=== PATIENT | female | born 2005 | race Two or more races ===

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

== ENCOUNTER 2025-03-04 15:35 | Emergency (ER) | payer OTHER ==
[~2025-03-04] VITALS: Ht 157.5 cm; Wt 66.4 kg
--- NOTE | 2025-03-04 15:46 | ED.PDOC ---
Back pain HPI HPI Comments A 19 YEAR-OLD FEMALE PRESENTS TO THE ED WITH A CHIEF COMPLAINT OF LOWER BACK PAIN OF X3 WEEKS AGO S/P LIFTING HEAVY BOXES ABOVE HER HEAD. PATIENT STATES PAIN IS A 10/10, WITH NO ASSOCIATED RELIEVING FACTORS. PATIENT HAS NO FURTHER COMPLAINTS AT THIS TIME AND OTHERWISE DENIES FEVER, CHILLS, SHORTNESS OF BREATH, CHEST PAIN, ABDOMINAL PAIN, NAUSEA, VOMITING, HEADACHE, OR OTHER COMPLAINTS.PATIENT IS ALERT, ORIENTED X 4, AND HAS STEADY GAIT. Chief Complaint: BACK PAIN Time Seen by MD: 15:49 Reviewed Notes: Nurses Notes, Medications, Allergies Allergies: Coded Allergies: NO KNOWN ALLERGIES (Unverified , 03/04/25) Home Meds Active Scripts Methocarbamol (Methocarbamol) 750 Mg Tab, 750 MG PO BID, #20 TAB Prov:JOHNATHAN CHAPIN 03/04/25 Ibuprofen (Ibuprofen) 800 Mg Tab, 1 TAB PO TID, #30 TAB Prov:JOHNATHAN CHAPIN 03/04/25 Information Source: Patient Mode of Arrival: Ambulatory Timing: Days, Weeks (X3) Duration: Since onset, Days Location of Back pain: (R) Lower back, (L) Lower back Severity: Moderate Onset: Lifing Modifying Factors: Movement, Twisting Associated signs and symptoms: Other (LOWER BACK PAIN ) Past Medical History PAST MEDICAL HISTORY: Denies Surgical History: Denies all surgeries 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 History Family History Family History: Reviewed,noncontributory to illness, No family hx of Cancer, No family hx of DM, No family hx of Heart jesu, No family hx of HTN, No family hx ofKidney jesu, No family hx of Liver jesu, No family hx of Lung jesu, No family hx of Stroke Social History Smoker: Non-Smoker Alcohol: Denies ETOH Use Drugs: Denies Drug Use Lives In: Home Constitutional: denies: chills, diaphoresis, fatigue, fever, malaise, sweats, weakness, others EENTM: denies: blurred vision, double vision, ear bleeding, ear discharge, ear drainage, ear pain, ear ringing, eye pain, eye redness, hearing loss, mouth pain, mouth swelling, nasal discharge, nose bleeding, nose congestion, nose pain, photophobia, tearing, throat pain, throat swelling, voice changes, others Respiratory: denies: cough, hemoptysis, orthopnea, SOB at rest, shortness of breath, SOB with excertion, stridor, wheezing, others Cardiovascular: denies: chest pain, dizzy spells, diaphoresis, Dyspnea on exertion, edema, irregular heart beat, left arm pain, lightheadedness, palpitations, PND, syncope, others Gastrointestinal: denies: abdomen distended, abdominal pain, blood streaked bowels, constipated, diarrhea, dysphagia, difficulty swallowing, hematemesis, melena, nausea, poor appetite, poor fluid intake, rectal bleeding, rectal pain, vomiting, others Genitourinary: denies: abnormal vagina bleeding, burning, dyspareunia, dysuria, flank pain, frequency, hematuria, incontinence, pain, , vagina discharge, urgency, others Neurological: denies: dizziness, fainting, headache, left sided numbness, left sided weakness, numbness, paresthesia, pre-existing deficit, right sided numbness, right sided weakness, seizure, speech problems, tingling, tremors, weakness, others Musculoskeletal: reports: back pain (LOWER ), muscle pain; denies: gout, joint pain, joint swelling, muscle stiffness, neck pain, others Integumetry: denies: bruises, change in color, change in hair/nails, dryness, laceration, lesions, lumps, rash, wounds, others Allergic/Immunocompromised: denies: Difficulty Healing, Frequent Infections, Hives, Itching, others Hematologic/Lymphatic: denies: anemia, blood clots, easy bleeding, easy bruising, swollen glands, others Endocrine: denies: excessive hunger, excessive sweating, excessive thirst, excessive urination, flushing, intolerance to cold, intolerance to heat, unexplained weight gain, unexplained weight loss, others Psychiatric: denies: anxiety, bipolar disorder, depression, hopeless, panic disorder, schizophrenia, sleepless, suicidal, others All Other Systems: Reviewed and Negative Physical Exam General Appearance: No Apparent Distress, Normal HEENT: Normal ENT Inspection, PERRL/EOMI, Pharynx Normal, TMs Normal Neck: Full Range of Motion, Non-Tender, Normal, Normal Inspection Respiratory: Chest Non-Tender, Lungs Clear, No Accessory Muscle Use, No Respiratory Distress, Normal Breath Sounds Cardiovascular: No Edema, No JVD, No Murmur, No Gallop, Normal Peripheral Pulses, Regular Rate/Rhythm Breast Exam: Deferred Gastrointestinal: No Organomegaly, Non Tender, No Pulsatile Mass, Normal Bowel Sounds, Soft Genitalia: Deferred Pelvic: Deferred Rectal: Deferred Extremities: No calf tenderness, Normal capillary refill, Normal inspection, Normal range of motion, Non-tender, No pedal edema Musculoskeletal : Location: Bilateral Extremity Location: Back Apperance: Tenderness: Moderate (TENDERNESS AND MUSCLE SPASM ON LOWER BACK, NO BONY TENDERNESS, SWELLING AND DEFORMITY. ) Neurologic: Alert, patient registration representative II-XII nml as Tested, No Motor Deficits, Normal Affect, Normal Mood, No Sensory Deficits Cerebellar Function: Normal Reflexes: Normal Skin: Dry, Normal Color, Warm Peripheral Pulses: 2+ carotid (R), 2+ carotid (L) Lymphatic: No Adenopathy Was a procedure done? Was a procedure done?: No Back Pain Differential Dx Differential Diagnosis: Fracture, Musculoskeletal Pain, Strain X-Ray, Labs, Meds, VS Vital Signs Date Time Temp Pulse Resp B/P (MAP) Pulse Ox O2 Delivery O2 Flow Rate FiO2 03/04/25 16:57 65 18 100 Room Air 03/04/25 16:57 98.2 65 20 94/52 (66) 100 98.2 03/04/25 15:50 98.5 74 20 104/60 (75) 98 98.5 Current Medications Medications (Trade) Dose Ordered Sig/Jas Route Start Time Stop Time Status Last Admin Ketorolac Tromethamine (Toradol Injection) 60 mg ONCE ONCE IM 03/04/25 16:30 03/04/25 16:31 DC 03/04/25 16:57 INDICATION: POST LIFING TECHNIQUE: 2 views of the lumbar spine were obtained. COMPARISON: None FINDINGS: There are no acute fractures or subluxations. IMPRESSION: No acute fracture or subluxation. X-Ray, Labs, Meds, VS Comment EXTERNAL MEDICAL RECORDS: NONE INDEPENDENT HISTORIANS: NONE SOCIAL DETERMINANTS OF HEALTH: NONE LABS ORDERED: NONE REVIEWED AND INTERPRETED RESULTS: NONE IMAGING ORDERED: NONE TREATMENTS ORDERED:TORADOL 60MG IM PATIENT'S CASE AND RESULTS HAVE BEEN DISCUSSED WITH THE ED ATTENDING PHYSICIAN AND THEY AGREE WITH MY PLAN OF CARE. RX: MOTRIN AND ROBAXIN. I HAVE DISCUSSED IMAGING AND LAB RESULTS WITH THE PATIENT AND HAVE INSTRUCTED THE PATIENT TO FOLLOW UP WITH THEIR PCP IN 1-2 DAYS. THE PATIENT FULLY UNDER STANDS THEIR RESULTS AND ARE AWARE THEY NEED TO FOLLOW UP WITH THEIR PCP FOR FURTHER EVALUATION IF THEIR SYMPTOMS PERSIST. Images Reviewed?: Images reviewed and evaluated by me Time of 1ST Reevaluation: 17:12 Reevaluation 1ST: Improved Patient Education/Counseling: Diagnosis, Treatment, Need For Follow Up Family Education/Counseling: Diagnosis, Treatment, Need For Follow Up Medical Screening: No EMC Exist At This Time SEPSIS Sepsis Screen Physician Orders Lumbar Spine 3 View (03/04/25 15:53) Vital Signs Date Time Temp Pulse Resp B/P (MAP) Pulse Ox O2 Delivery O2 Flow Rate FiO2 03/04/25 16:57 65 18 100 Room Air 03/04/25 16:57 98.2 65 20 94/52 (66) 100 98.2 03/04/25 15:50 98.5 74 20 104/60 (75) 98 98.5 Medications Medications Dose Ordered Sig/Jas Route Start Time Stop Time Status Last Admin Dose Admin Ketorolac Tromethamine 60 mg ONCE ONCE IM 03/04/25 16:30 03/04/25 16:31 DC 03/04/25 16:57 Departure 1 Departure Time of Disposition: 17:35 Impression: Primary Impression: Low back strain Qualified Codes: S39.012A - Strain of muscle, fascia and tendon of lower back, initial encounter Disposition: 01 HOME / SELF CARE / HOMELESS Condition: Stable Additional Instructions: FOLLOW-UP WITH [facility] IN 2 DAYS RECHECK. TAKE MEDICATIONS PRESCRIBED. RETURN TO ED FOR ANY NEW OR WORSENING SYMPTOMS. e-Prescriptions Methocarbamol (Methocarbamol) 750 Mg Tab 750 MG PO BID, #20 TAB Prov: JOHNATHAN CHAPIN 03/04/25 Ibuprofen (Ibuprofen) 800 Mg Tab 1 TAB PO TID, #30 TAB Prov: JOHNATHAN CHAPIN 03/04/25 Discharged With: Self Critical Care Note Critical Care Time?: No Stability Stability form required: No Heart Score Heart Score: Heart Score Response (Comments) Value History N/A 0 EKG N/A 0 Age N/A 0 Risk Factors N/A 0 Troponin N/A 0 Total 0 I personally scribed for JOHNATHAN CHAPIN ([email or web address]) on 03/04/25 at 15:46. Electronically submitted by Karol Oropeza ([email or web address]). I personally scribed for JOHNATHAN CHAPIN ([email or web address]) on 03/04/25 at 15:53. Electronically submitted by Karol Oropeza ([email or web address]). I personally scribed for JOHNATHAN CHAPIN ([email or web address]) on 03/04/25 at 17:10. Electronically submitted by Karol Oropeza ([email or web address]). JOHNATHAN CHAPIN Mar 04, 2025 15:46
[2025-03-04] MEDS: KETOROLAC TROMETH 60MG/2ML VIAL IM ONE (16:57)
--- NOTE | 2025-03-04 17:01 | DVH ---
INDICATION: POST LIFING TECHNIQUE: 2 views of the lumbar spine were obtained. COMPARISON: None FINDINGS: There are no acute fractures or subluxations. IMPRESSION: No acute fracture or subluxation.
[2025-03-04] MEDS ORDERED: IBUP-1456 PO (17:30)
[2025-03-04] MEDS ORDERED: METH-1182 PO (17:30)
[2025-03-04 17:38] VITALS: BP 102/62; PULSE 59; RESP 18; TEMP 98.6; O2SAT 100
== END 2025-03-04 17:44 | disposition home or self-care (01) ==
LOC: ER 15:35
DX: S39.012A Strain of muscle, fascia and tendon of lower back, initial encounter (principal); X50.0XXA Overexertion from strenuous movement or load, initial encounter; Y93.89 Activity, other specified; Y92.89 Other specified places as the place of occurrence of the external cause; Y99.8 Other external cause status
CPT/HCPCS: 72100; 96372; 99283; J1885